=== PATIENT | male | born 1960 | race Caucasian/White ===

== ENCOUNTER 2024-08-11 12:19 | Inpatient (IN) | payer OTHER ==
[~2024-08-11] VITALS: Ht 175.3 cm; Wt 79.5 kg
[2024-08-11 14:36] LABS: BASOPHILS % (AUTO) 0.3 % (0.0-2.0); EOSINOPHILS % (AUTO) 0.1 % (1.0-6.0); HEMOGLOBIN 13.1 g/dL (13.5-17.5); LYMPHOCYTES # (AUTO) 1.4 K/uL (1.0-4.8); LYMPHOCYTES % (AUTO) 12.2 % (22.0-44.0); MEAN CORPUSCULAR HEMOGLOBIN 28.3 pg (26.0-34.0); MEAN CORPUSCULAR HGB CONC 32.7 G/dL (31.0-37.0); MEAN CORPUSCULAR VOLUME 87 fL (80-100); MONOCYTES # (AUTO) 1.4 K/uL (0.1-1.0); MONOCYTES % (AUTO) 12.5 % (2.0-9.0); NEUTROPHILS # (AUTO) 8.3 K/uL (1.8-7.7); NEUTROPHILS % (AUTO) 74.9 % (40.0-70.0); PLATELET COUNT (AUTO) 262 K/uL (150-450); RED BLOOD CELL COUNT(AUTO) 4.61 MIL/uL (4.50-5.90); RED CELL DISTRIBUTION WIDTH 15.8 % (11.5-14.5); WHITE BLOOD COUNT (AUTO) 11.1 K/uL (4.5-11.0)
[2024-08-11 15:01] LABS: TROPONIN I-HIGH SENSITIVITY 17 ng/L (<76)
[2024-08-11 15:06] LABS: ANION GAP 12 mmol/L (8-16); CALCIUM, TOTAL 8.6 mg/dL (8.8-10.5); CARBON DIOXIDE 25 mmol/L (22-29); CHLORIDE 95 mmol/L (98-107); GLOMERULAR FILTR. RATE CALC > 60 mL/min (>60); GLUCOSE,RANDOM 117 mg/dL (70-110); LIPASE 40 U/L (16-77); POTASSIUM 3.4 mmol/L (3.5-5.1); SODIUM SERUM 132 mmol/L (136-145); UREA NITROGEN, BLOOD 19 mg/dL (7-18)
[2024-08-11 15:45] LABS: APPEARANCE,URINE CLEAR (CLEAR); BILIRUBIN,URINE NEGATIVE (NEGATIVE); COLOR,URINE LIGHT YELLOW (YELLOW); GLUCOSE, URINE (UA) NEGATIVE (NEGATIVE); KETONES,URINE NEGATIVE (NEGATIVE); LEUKOCYTE ESTERASE ,URINE NEGATIVE (NEGATIVE); NITRATE,URINE NEGATIVE (NEGATIVE); OCCULT BLOOD,URINE NEGATIVE (NEGATIVE); PH,URINE 7.5 (5.0-8.0); PROTEIN,URINE TRACE mg/dL (NEGATIVE); SPECIFIC GRAVITIY, URINE 1.006 (1.003-1.030); UROBILINOGEN,URINE <=1.0 mg/dL (<=1.0)
[2024-08-11] MEDS: PANTOPRAZOLE SODIUM 40 MG/VIAL IVP ONE (16:00)
[2024-08-11] MEDS ORDERED: BUSP15 PO (16:37)
[2024-08-11] MEDS ORDERED: LOSA-382 PO (16:37)
[2024-08-11] MEDS ORDERED: VALP250C48 PO (16:37)
[2024-08-11] MEDS ORDERED: XALA2.5OS OU (16:37)
[2024-08-11] MEDS ORDERED: MAGNESIUM HYDROXIDE SUSPENSION 30 ML UDCUP PO PRN ×2 (18:30→21:30)
[2024-08-11] MEDS ORDERED: MORPHINE SULFATE 2 MG/ML SYRINGE IVP PRN (18:30)
[2024-08-11] MEDS ORDERED: ONDANSETRON HCL 4 MG/2 ML VIAL IVP PRN ×2 (18:30→21:30)
[2024-08-11] MEDS ORDERED: IPRATROPIUM BROMIDE 0.5 MG/2.5 ML NEB SOLUTION NEB PRN ×2 (18:30→21:30)
[2024-08-11] MEDS ORDERED: ALBUTEROL SULFATE 2.5 MG/0.5 ML NEB SOLUTION NEB PRN ×2 (18:30→21:30)
[2024-08-11] MEDS ORDERED: HYDROCODONE/ACETAMINOPHEN 5-325 MG TABLET PO PRN (18:30)
[2024-08-11] MEDS ORDERED: BISACODYL 10 MG RECTAL RECTAL SUPPOSITORY PR PRN ×2 (18:30→21:30)
[2024-08-11] MEDS ORDERED: ACETAMINOPHEN 325 MG TABLET PO PRN (21:30)
[2024-08-11] MEDS ORDERED: ZOLPIDEM TARTRATE 5 MG TABLET PO PRN (21:30)
[2024-08-11] MEDS ORDERED: POTASSIUM CHL 10 MEQ/WATER 50 ML IV PRN (21:30)
[2024-08-11] MEDS: DOCUSATE SODIUM 100 MG CAPSULE PO SCH (21:35)
[2024-08-11] MEDS: BusPIRone HCL 15 MG TABLET PO SCH (21:35)
[2024-08-11] MEDS: LATANOPROST 0.005% 2.5 ML OPHTHALMIC SOLUTION OU SCH (21:36)
[2024-08-11] MEDS: POTASSIUM CHLORIDE 20 MEQ ER TABLET PO PRN (22:21)
[2024-08-11] MEDS: HEPARIN SODIUM,PORCINE 5,000 UNITS/ML VIAL SQ SCH (23:27)
[2024-08-11 23:50] VITALS: BP 154/103; PULSE 94; RESP 20; TEMP 99.2; O2SAT 97
[2024-08-12] MEDS ORDERED: HEPARIN SODIUM,PORCINE 5,000 UNITS/ML VIAL SQ SCH
[2024-08-12] MEDS: LOSARTAN POTASSIUM 50 MG TABLET PO ONE (00:17)
[2024-08-12] MEDS: ZOLPIDEM TARTRATE 5 MG TABLET PO PRN (01:14)
[2024-08-12 06:35] VITALS: BP 142/110; PULSE 106; RESP 20; TEMP 98.3; O2SAT 97
[2024-08-12 06:53] LABS: BASOPHILS % (AUTO) 0.5 % (0.0-2.0); EOSINOPHILS % (AUTO) 0.1 % (1.0-6.0); HEMATOCRIT 39.2 % (41-53); HEMOGLOBIN 13.1 g/dL (13.5-17.5); LYMPHOCYTES # (AUTO) 1.1 K/uL (1.0-4.8); LYMPHOCYTES % (AUTO) 9.3 % (22.0-44.0); MEAN CORPUSCULAR HEMOGLOBIN 28.9 pg (26.0-34.0); MEAN CORPUSCULAR HGB CONC 33.4 G/dL (31.0-37.0); MEAN CORPUSCULAR VOLUME 87 fL (80-100); MONOCYTES # (AUTO) 1.6 K/uL (0.1-1.0); MONOCYTES % (AUTO) 13.5 % (2.0-9.0); NEUTROPHILS # (AUTO) 9.1 K/uL (1.8-7.7); NEUTROPHILS % (AUTO) 76.6 % (40.0-70.0); PLATELET COUNT (AUTO) 270 K/uL (150-450); RED BLOOD CELL COUNT(AUTO) 4.52 MIL/uL (4.50-5.90); RED CELL DISTRIBUTION WIDTH 15.5 % (11.5-14.5); WHITE BLOOD COUNT (AUTO) 11.9 K/uL (4.5-11.0)
[2024-08-12 07:16] LABS: CALCIUM, TOTAL 7.7 mg/dL (8.8-10.5); CREATININE 1.3 mg/dL (0.60-1.30); POTASSIUM 3.9 mmol/L (3.5-5.1)
[2024-08-12] MEDS: LOSARTAN POTASSIUM 50 MG TABLET PO SCH (08:37)
[2024-08-12] MEDS: VALPROIC ACID 250 MG CAPSULE PO SCH (08:37)
[2024-08-12] MEDS: PANTOPRAZOLE SODIUM 40 MG/VIAL IVP SCH (08:38)
[2024-08-12] MEDS ORDERED: PANTOPRAZOLE SODIUM 40 MG/VIAL IVP SCH (09:00)
[2024-08-12] MEDS ORDERED: DOCUSATE SODIUM 100 MG CAPSULE PO SCH (09:00)
[2024-08-12] MEDS: ACETAMINOPHEN 325 MG TABLET PO PRN (09:29)
[2024-08-12] MEDS: HydrALAZINE HCL 25 MG TABLET PO SCH (11:15)
[2024-08-12 12:02] VITALS: BP 123/89; PULSE 91; RESP 21; TEMP 98.2; O2SAT 98
[2024-08-12 20:35] VITALS: BP 141/75; PULSE 83; RESP 16; TEMP 101.1; O2SAT 96
[2024-08-12 23:28] LABS: APPEARANCE,URINE CLEAR (CLEAR); BILIRUBIN,URINE NEGATIVE (NEGATIVE); COLOR,URINE COLORLESS (YELLOW); GLUCOSE, URINE (UA) NEGATIVE (NEGATIVE); KETONES,URINE NEGATIVE (NEGATIVE); LEUKOCYTE ESTERASE ,URINE NEGATIVE (NEGATIVE); NITRATE,URINE NEGATIVE (NEGATIVE); OCCULT BLOOD,URINE NEGATIVE (NEGATIVE); PROTEIN,URINE NEGATIVE (NEGATIVE); SPECIFIC GRAVITIY, URINE 1.005 (1.003-1.030); UROBILINOGEN,URINE <=1.0 mg/dL (<=1.0)
[2024-08-13 04:06] LABS: HEPATITIS C AB (EIA) Non Reactive (Non Reactive)
[2024-08-13 04:59] VITALS: BP 121/89; PULSE 88; RESP 16; TEMP 98.5; O2SAT 99
[2024-08-13 07:58] VITALS: BP 126/75; PULSE 92; RESP 20; TEMP 99.6; O2SAT 98
[2024-08-13 10:49] VITALS: TEMP 98.4
[2024-08-13] MEDS ORDERED: 0.9% SODIUM CHLORIDE 10 ML SYRINGE IVP PRN (13:00)
[2024-08-13] MEDS: SODIUM CHLORIDE 0.9% 2,400 ML IV ONE (13:28)
[2024-08-13 13:31] LABS: BASOPHILS % (AUTO) 0.3 % (0.0-2.0); EOSINOPHILS % (AUTO) 0.8 % (1.0-6.0); HEMOGLOBIN 11.8 g/dL (13.5-17.5); LYMPHOCYTES # (AUTO) 1.5 K/uL (1.0-4.8); LYMPHOCYTES % (AUTO) 15.2 % (22.0-44.0); MEAN CORPUSCULAR HEMOGLOBIN 28.9 pg (26.0-34.0); MEAN CORPUSCULAR HGB CONC 32.9 G/dL (31.0-37.0); MEAN CORPUSCULAR VOLUME 88 fL (80-100); MONOCYTES # (AUTO) 1.1 K/uL (0.1-1.0); MONOCYTES % (AUTO) 11.7 % (2.0-9.0); NEUTROPHILS # (AUTO) 6.9 K/uL (1.8-7.7); PLATELET COUNT (AUTO) 239 K/uL (150-450); RED CELL DISTRIBUTION WIDTH 15.6 % (11.5-14.5); WHITE BLOOD COUNT (AUTO) 9.6 K/uL (4.5-11.0)
[2024-08-13 13:49] LABS: LACTIC ACID 2.9 mmol/L (0.4-2.0)
[2024-08-13 13:56] LABS: ALANINE AMINOTRANSFERASE 50 U/L (12-78); ALBUMIN 2.5 g/dL (3.4-5.0); ALKALINE PHOSPHATASE 153 U/L (46-116); ASPARTATE AMINOTRANSFERASE 14 U/L (15-37); BILIRUBIN,TOTAL 0.7 mg/dL (0.1-1.0); CALCIUM, TOTAL 7.5 mg/dL (8.8-10.5); CARBON DIOXIDE 23 mmol/L (22-29); CHLORIDE 96 mmol/L (98-107); CREATININE 1.41 mg/dL (0.60-1.30); GLOMERULAR FILTR. RATE CALC 50 mL/min (>60); GLUCOSE,RANDOM 115 mg/dL (70-110); LACTATE DEHYDROGENASE 131 U/L (85-227); POTASSIUM 3.9 mmol/L (3.5-5.1); SODIUM SERUM 125 mmol/L (136-145); TOTAL PROTEIN, SERUM 6.1 g/dL (6.4-8.2); UREA NITROGEN, BLOOD 16 mg/dL (7-18)
[2024-08-13 13:59] LABS: ANION GAP 6 mmol/L (8-16)
[2024-08-13] MEDS: PIPERACILLIN/TAZO 3.375 GM/D5W 50 ML IV SCH (15:56)
[2024-08-13] MEDS: SODIUM CHLORIDE 0.9% 1,000 ML IV SCH (17:10)
[2024-08-13 21:03] VITALS: BP 142/80; PULSE 99; RESP 20; TEMP 98.9; O2SAT 98
[2024-08-13 23:16] VITALS: BP 126/81; PULSE 83; RESP 18; TEMP 99.1; O2SAT 98
[2024-08-14 03:28] VITALS: BP 134/81; PULSE 101; RESP 18; TEMP 98.1; O2SAT 96
[2024-08-14] MEDS ORDERED: CeFAZolin SODIUM 1 GM VIAL ONE (05:46)
[2024-08-14] MEDS ORDERED: PROPOFOL 1% 20 ML VIAL IVP ONE (05:46)
[2024-08-14] MEDS ORDERED: ONDANSETRON HCL 4 MG/2 ML VIAL ONE (05:46)
[2024-08-14] MEDS ORDERED: DEXAMETHASONE SOD PHOS 4 MG/ML VIAL ONE (05:46)
[2024-08-14] MEDS ORDERED: FentaNYL CITRATE PF 100 MCG/2 ML VIAL ONE ×2 (05:46→16:21)
[2024-08-14] MEDS ORDERED: ROCURONIUM BROMIDE 10 MG/ML 5 ML VIAL ONE (05:46)
[2024-08-14] MEDS ORDERED: SUGAMMADEX SODIUM 200 MG/2 ML VIAL IVP ONE (05:46)
[2024-08-14] MEDS ORDERED: MIDAZOLAM HCL 2 MG/2 ML VIAL ONE (05:46)
[2024-08-14] MEDS ORDERED: LIDOCAINE/PF 2% 5 ML VIAL ONE (05:46)
[2024-08-14 07:30] VITALS: BP 156/93; PULSE 78; RESP 18; TEMP 99.3; O2SAT 96
[2024-08-14 07:55] LABS: EOSINOPHILS % (AUTO) 1.7 % (1.0-6.0); HEMATOCRIT 34.4 % (41-53); HEMOGLOBIN 11.5 g/dL (13.5-17.5); LYMPHOCYTES # (AUTO) 1.1 K/uL (1.0-4.8); LYMPHOCYTES % (AUTO) 12.2 % (22.0-44.0); MEAN CORPUSCULAR HEMOGLOBIN 29.2 pg (26.0-34.0); MEAN CORPUSCULAR HGB CONC 33.4 G/dL (31.0-37.0); MEAN CORPUSCULAR VOLUME 88 fL (80-100); MONOCYTES # (AUTO) 1.2 K/uL (0.1-1.0); MONOCYTES % (AUTO) 13.8 % (2.0-9.0); NEUTROPHILS # (AUTO) 6.3 K/uL (1.8-7.7); NEUTROPHILS % (AUTO) 71.3 % (40.0-70.0); PLATELET COUNT (AUTO) 257 K/uL (150-450); RED BLOOD CELL COUNT(AUTO) 3.93 MIL/uL (4.50-5.90); RED CELL DISTRIBUTION WIDTH 15.7 % (11.5-14.5); WHITE BLOOD COUNT (AUTO) 8.9 K/uL (4.5-11.0)
[2024-08-14 08:03] LABS: ANION GAP 10 mmol/L (8-16); CALCIUM, TOTAL 7.4 mg/dL (8.8-10.5); CARBON DIOXIDE 21 mmol/L (22-29); CHLORIDE 104 mmol/L (98-107); CREATININE 1.18 mg/dL (0.60-1.30); GLOMERULAR FILTR. RATE CALC > 60 mL/min (>60); GLUCOSE,RANDOM 81 mg/dL (70-110); POTASSIUM 3.8 mmol/L (3.5-5.1); SODIUM SERUM 135 mmol/L (136-145); UREA NITROGEN, BLOOD 12 mg/dL (7-18)
[2024-08-14] MEDS ORDERED: RINGERS SOLUTION,LACTATED 1,000 ML IV ONE (10:23)
[2024-08-14] MEDS ORDERED: MEPERIDINE-PF 25 MG/ML VIAL IVP PRN (12:15)
[2024-08-14] MEDS ORDERED: HYDROmorphone HCL 2 MG/ML SYRINGE IVP PRN (12:15)
[2024-08-14 12:40] VITALS: BP 124/65; PULSE 100; RESP 18; TEMP 99.1; O2SAT 96
[2024-08-14] MEDS ORDERED: BUPIVACAINE 0.25%/EPI 1:200,000/PF 30 ML VIAL ONE (14:36)
[2024-08-14] MEDS: IOHEXOL 240 MG/ML 20 ML VIAL IVP ONE (14:45)
[2024-08-14] MEDS: BUPIVACAINE 0.25%/EPI 1:200,000/PF 30 ML VIAL IARTIC ONE (14:45)
[2024-08-14] MEDS ORDERED: ACETAMINOPHEN 500 MG TABLET PO PRN (16:00)
[2024-08-14] MEDS: FentaNYL CITRATE PF 100 MCG/2 ML VIAL IVP PRN (16:26)
[2024-08-14] MEDS ORDERED: ACETAMINOPHEN 1000 MG/ISO-OSM 100 ML IV ONE (16:28)
[2024-08-14] MEDS: ACETAMINOPHEN 1000 MG/ISO-OSM 100 ML IV ONE (16:36)
[2024-08-14 19:08] LABS: BASOPHILS % (AUTO) 0.1 % (0.0-2.0); EOSINOPHILS % (AUTO) 0.1 % (1.0-6.0); HEMATOCRIT 38.4 % (41-53); HEMOGLOBIN 12.4 g/dL (13.5-17.5); LYMPHOCYTES # (AUTO) 0.3 K/uL (1.0-4.8); LYMPHOCYTES % (AUTO) 4.3 % (22.0-44.0); MEAN CORPUSCULAR HEMOGLOBIN 28.5 pg (26.0-34.0); MEAN CORPUSCULAR HGB CONC 32.4 G/dL (31.0-37.0); MEAN CORPUSCULAR VOLUME 88 fL (80-100); MONOCYTES # (AUTO) 0.5 K/uL (0.1-1.0); MONOCYTES % (AUTO) 7.5 % (2.0-9.0); NEUTROPHILS # (AUTO) 6.5 K/uL (1.8-7.7); PLATELET COUNT (AUTO) 280 K/uL (150-450); RED BLOOD CELL COUNT(AUTO) 4.36 MIL/uL (4.50-5.90); RED CELL DISTRIBUTION WIDTH 15.7 % (11.5-14.5); WHITE BLOOD COUNT (AUTO) 7.3 K/uL (4.5-11.0)
[2024-08-14 19:16] LABS: CALCIUM, TOTAL 7.8 mg/dL (8.8-10.5); CREATININE 1.28 mg/dL (0.60-1.30); MAGNESIUM 2.2 mg/dL (1.80-2.40)
[2024-08-14] MEDS ORDERED: OXYGEN THERAPY IH SCH (20:00)
[2024-08-14 20:11] VITALS: BP 163/86; PULSE 99; RESP 18; TEMP 98.8; O2SAT 99
[2024-08-14] MEDS: OxyCODONE HCL 5 MG IR TABLET PO PRN (22:51)
[2024-08-15 05:52] VITALS: BP 137/97; PULSE 86; RESP 19; TEMP 97.9; O2SAT 97
[2024-08-15 08:03] VITALS: BP 141/75; PULSE 85; RESP 19; TEMP 98; O2SAT 96
[2024-08-15 09:59] LABS: BASOPHILS % (AUTO) 0.6 % (0.0-2.0); EOSINOPHILS % (AUTO) 0 % (1.0-6.0); HEMATOCRIT 33.9 % (41-53); HEMOGLOBIN 11.2 g/dL (13.5-17.5); LYMPHOCYTES # (AUTO) 0.8 K/uL (1.0-4.8); LYMPHOCYTES % (AUTO) 8.3 % (22.0-44.0); MEAN CORPUSCULAR HEMOGLOBIN 29.1 pg (26.0-34.0); MEAN CORPUSCULAR VOLUME 88 fL (80-100); MONOCYTES # (AUTO) 0.9 K/uL (0.1-1.0); NEUTROPHILS # (AUTO) 7.8 K/uL (1.8-7.7); NEUTROPHILS % (AUTO) 82.1 % (40.0-70.0); PLATELET COUNT (AUTO) 269 K/uL (150-450); RED BLOOD CELL COUNT(AUTO) 3.85 MIL/uL (4.50-5.90); RED CELL DISTRIBUTION WIDTH 15.9 % (11.5-14.5); WHITE BLOOD COUNT (AUTO) 9.5 K/uL (4.5-11.0)
[2024-08-15 10:12] LABS: CALCIUM, TOTAL 7.7 mg/dL (8.8-10.5); CREATININE 1.27 mg/dL (0.60-1.30); POTASSIUM 4.4 mmol/L (3.5-5.1)
[2024-08-15 10:17] LABS: ALBUMIN 2.3 g/dL (3.4-5.0); BILIRUBIN,TOTAL 0.4 mg/dL (0.1-1.0); TOTAL PROTEIN, SERUM 6.2 g/dL (6.4-8.2)
[2024-08-15] MEDS ORDERED: RINGERS SOLUTION,LACTATED 500 ML IV ONE (11:15)
[2024-08-15] MEDS ORDERED: OMEP20 PO (11:58)
[2024-08-15] MEDS ORDERED: HYDR25TA84 PO (11:58)
[2024-08-15] MEDS ORDERED: ACET-3385 PO (11:58)
[2024-08-15] MEDS: SENNOSIDES 8.6 MG TABLET PO ONE (12:56)
[2024-08-15] MEDS: POLYETHYLENE GLYCOL 3350 17 GM PACKET PO ONE (12:56)
[2024-08-15] MEDS: RINGERS SOLUTION,LACTATED 500 ML IV ONE (13:04)
[2024-08-15] MEDS: PB/HYOSCY/ATR/SCOP/LIDO/MAALOX 55 ML BOTTLE PO ONE (14:00)
[2024-08-15] MEDS: DOCUSATE SODIUM 100 MG CAPSULE PO SCH (14:00)
[2024-08-15] MEDS: SODIUM PHOSPHATE,MONO-DIBASIC 133 ML ENEMA PR ONE (14:00)
[2024-08-15 15:12] VITALS: BP 131/82; PULSE 84; RESP 19; TEMP 98.1; O2SAT 97
== END 2024-08-15 19:53 | DRG 417 ==
LOC: EMS 12:19 → EDH 18:25 → 6S 22:31 → 5S 08-13 19:06 → 6S 08-14 22:06
PROVIDERS: ADMIT Hospitalist; ATTEND Hospitalist
PROC: 0FT44ZZ Resection of Gallbladder, Percutaneous Endoscopic Approach (ICD-10-PCS; principal; 2024-08-14 14:30)
DX: K80.12 Calculus of gallbladder with acute and chronic cholecystitis without obstruction (principal); A41.9 Sepsis, unspecified organism; N17.0 Acute kidney failure with tubular necrosis; K20.91 Esophagitis, unspecified with bleeding; E87.1 Hypo-osmolality and hyponatremia; E87.20 Acidosis, unspecified; K82.1 Hydrops of gallbladder; D64.9 Anemia, unspecified; I10 Essential (primary) hypertension; E87.6 Hypokalemia; F32.A Depression, unspecified; G20.A1 Parkinson's disease without dyskinesia, without mention of fluctuations; G40.909 Epilepsy, unspecified, not intractable, without status epilepticus; F12.90 Cannabis use, unspecified, uncomplicated
CPT/HCPCS: 71045; 74176; 76705; 80048; 80053; 81003; 82271; 83605; 83615; 83690; 83735; 84145; 84484; 85025; 85730; 86803; 86850; 86900; 86901; 87040; 87340; 88304; 93005; 99285; C9113; J0131; J0690; J1100; J1644; J2250; J2405; J2543; J2704; J3010; J3490; J7030; J7120; Q9966; 36415-L1; 36415-TC; Z7610